=== PATIENT | female | born 1940 | race Caucasian/White ===

== ENCOUNTER 2018-11-10 22:27 | Inpatient (IN) | payer MEDICARE, BC ==
[2018-11-10 23:40] VITALS: BMI 26.6
--- NOTE | 2018-11-10 23:47 | PDOC.FPRHP ---
- History of Present Illness Chief Complaint: hematemesis, melena History of Present Illness: Patient is a 77F with PMHx of OA, RA, hypothyroidism, HTN, HLD that presented as a direct admit from [place] for upper GI bleed. Patient reports that early this morning she had a bout of coffee ground emesis, and 1 episode of melena. She denies that this has ever happened to her before. She states that she has been nauseous for the past few months with some weight loss, but denies other symptoms. She states that she had a colonoscopy >10 years ago, and this was normal. She denies frequent NSAID use, though sulindac is on her home med list - Allergies/Adverse Reactions Allergies Allergy/AdvReac Type Severity Reaction Status Date / Time No Known Allergies Allergy Unverified 11/11/18 04:17 - Home Medications Medication Instructions Recorded Confirmed Type Amlodipine [Norvasc] 5 mg DAILY 11/11/18 11/11/18 History Atorvastatin Calcium 40 mg HS 11/11/18 11/11/18 History Gabapentin 300 mg BID 11/11/18 11/11/18 History Levothyroxine Sodium 125 mcg DAILY 11/11/18 11/11/18 History Quinapril HCl 20 mg DAILY 11/11/18 11/11/18 History Sulindac 200 mg BID 11/11/18 11/11/18 History - History PMHx:OA, RA, hypothyroidism, HTN, HLD PSHx: hysterectomy, knee replacement FHx: sister had colon cancer, unknown age of diagnosis Social:1ppd smoker, no etoh use, no drug use - Review of Systems General: reports: weight/appetite/sleep changes (reported weight loss over the last few months). denies: fever/chills Eyes: denies: eye pain, vision changes ENT: denies: nasal congestion, rhinorrhea Respiratory: denies: cough, congestion, shortness of breath Cardiovascular: denies: chest pain, palpitation Gastrointestinal: reports: vomiting, GI bleeding Genitourinary: denies: incontinence, dysuria Skin: denies: rashes, lesions Musculoskeletal: reports: arthritis/arthralgias. denies: pain Neurological: denies: numbness, weakness Psychological: denies: anxiety, depression - Vital signs BP: [124/74] HR: [90] RR: [18] Tmax: [98.2] Pox: [96]% on [RA] Wt: [72.57kg] - Physical Exam Constitutional: NAD, awake, alert and oriented HEENT: EOMI, MMM Neck: supple, trachea midline Chest: no-tender to palpation, no lesions Heart: RRR, normal S1/S2 Lungs: CTAB, no respiratory distress Abdomen: soft, non-tender, bowel sounds present Musculoskeletal: normal structure, normal tone Neurological: no focal deficit, normal sensation Skin: good turgor, other (pale) Heme/Lymphatic: no unusual bruising or bleeding, no purpura Psychiatric: normal mood and affect, good judgment and insight FMR H&P: A/P - Problem List (1) Upper GI bleed Current Visit: Yes Status: Acute Code(s): K92.2 - GASTROINTESTINAL HEMORRHAGE, UNSPECIFIED (2) Osteoarthritis Current Visit: Yes Status: Acute Code(s): M19.90 - UNSPECIFIED OSTEOARTHRITIS, UNSPECIFIED SITE (3) Rheumatoid arthritis Current Visit: Yes Status: Acute Code(s): M06.9 - RHEUMATOID ARTHRITIS, UNSPECIFIED (4) Hypothyroidism Current Visit: Yes Status: Acute Code(s): E03.9 - HYPOTHYROIDISM, UNSPECIFIED (5) HTN (hypertension) Current Visit: Yes Status: Acute Code(s): I10 - ESSENTIAL (PRIMARY) HYPERTENSION (6) HLD (hyperlipidemia) Current Visit: Yes Status: Acute Code(s): E78.5 - HYPERLIPIDEMIA, UNSPECIFIED - Plan Patient is a 77F with PMHx of OA, RA, hypothyroidism, HTN, HLD that presented as a direct admit from [place] for upper GI bleed. #Upper GI Bleed -patient had reported episode of coffe-ground emesis, melena earlier this morning -patient has been taking sulindac -last colonoscopy >10 years ago, reportedly normal -sister with reported colon cancer -denies abdominal pain at this time -GI consult, likely EGD in am #HTN -well controlled at this time, continue home meds #HLD -continue home meds #Hypothyroidism -continue home meds #OA, RA -not on any DMARDS, questionable RA dx -hold home sulindac Diet: NPO DVT: SCDs Code: Full Dispo: inpatient for upper GI bleed, GI consult in am with likely EGD FMR H&P: Upper Level - Pertinent history 77 yo F here as direct admit from [place] for a suspected upper GI bleed. Patient initially presented to ER due to one episode of coffee ground emesis and black tarry stool. She denies associated palpitation, CP, SOB, or dizziness. She does have a hx of OA, however typically does not take NSAIDs. She does not have a hx of GI bleed. Her most recent colonoscopy was about 10 years ago and normal. In the outside ED Hb was 10.4 with an MCV of 93. There were no other lab abnormalities in the outside ED. PMHx OA RA HTN HLD Social Hx +30 pack year hx of cigarette smoking No recreational drugs or etoh Surgical hx - none - Pertinent findings See agriculture intern note for full ROS, PE, vitals, and labs ROS General Denies fever, chills CV Denies CP or palpitation Resp Denies SOB or cough GI complains of coffee ground emesis and 1 episode of black stool. denies increased frequency or dysuria PE General A&O x4, NAD HEENT NCAT, conj is pink CV RRR, no murmur Resp CTA Abd soft, normal bowel sounds, no masses Extremities normal strength and ROM. No edema. Normal cap refill Neuro CN II-XII grossly intact - Plan Date/Time: 11/10/18 1286 I, Grant Bourgeois DO, have evaluated this patient and agree with findings/plan as outlined by agriculture intern resident. Pertinent changes/additions are listed here. 1. Upper GI bleed, suspected - currently hemodynamically stable. Admit to medicine - consult GI - NPO at midnight for expected scope. - monitor H&H in am 2. Acute blood loss anemia - Monitor as above 3. HTN - home meds 4. HLD - home meds 5. RA - unsure of this dx. PE is not c/w with RA and pt is on no DMARDs See agriculture intern note for management of other chronic conditions. Code Full Diet NPO PPx SCD
[2018-11-11 05:54] LABS: #Basophils 0.1 thou/uL (0.0-0.2); #Eosinphils 0.3 thou/uL (0.0-0.7); #Lymphocytes 1.7 thou/uL (1.20-3.40); #Monocytes 0.5 thou/uL (0.11-0.59); #Neutrophils 4.7 thou/uL (1.40-6.50); %Basophils 0.7 % (0.0-1.0); %Eosinophils 4.4 % (0.0-10.0); %Lymphocytes 23.1 % (21.0-51.0); %Monocytes 6.7 % (0.0-10.0); Hemoglobin 8.9 g/dL (12.0-16.0); Mean Corpuscular HGB CONC 32.9 g/dL (32.0-36.0); Mean Corpuscular Hemoglobin 31.1 pg (27.0-31.0); Mean Corpuscular Volume 94.5 fL (78.0-98.0); Platelet Count 279 thou/uL (130-400); RBC Distribution Width 12.8 % (11.5-14.5); Red Blood Cell (RBC) Count 2.85 mill/uL (4.20-5.40); White Blood Cell (WBC) Count 7.2 thou/uL (4.8-10.8)
[2018-11-11] MEDS: Levothyroxine Sodium 125 MCG TAB PO SCH (05:54)
[2018-11-11 06:14] LABS: ALT (SGPT) 10 U/L (8-55); AST (SGOT) 19 U/L (5-34); Albumin 2.7 g/dL (3.4-4.8); Alkaline Phosphatase 130 U/L (40-110); Anion Gap 10 mmol/L (10-20); BUN (Urea Nitrogen) 28 mg/dL (9.8-20.1); Bilirubin, Total 0.6 mg/dL (0.2-1.2); Calc. Creatinine Clearance 53 mL/min (70-130); Calcium 8.1 mg/dL (7.8-10.44); Carbon Dioxide 24 mmol/L (23-31); Chloride 112 mmol/L (98-107); Estimated GFR-MDRD 54; Globulin 2.4 g/dL (2.4-3.5); Glucose 80 mg/dL (83-110); Potassium 4.8 mmol/L (3.5-5.1); Protein, Total 5.1 g/dL (6.0-8.3); Sodium 141 mmol/L (136-145)
--- NOTE | 2018-11-11 06:34 | PDOC.FM ---
- Subjective Subjective: Had bloody coffee ground emesis X2 days ago, and a melena BM. Denies any further emesis or BM since admission. C/o abdominal pain, right LQ. No vomiting since admission. + nausea. - CP, SOB. - Objective MAR Reviewed: Yes Vital Signs & Weight: Vital Signs (12 hours) Temp Pulse Resp BP Pulse Ox 11/11/18 04:53 97.7 F 92 17 112/66 97 11/11/18 00:00 96 11/10/18 22:40 98.2 F 90 18 124/74 96 Weight Weight 72.57 kg Result Diagrams: 11/11/18 05:23 11/11/18 05:23 Phys Exam - Physical Examination Constitutional: NAD HEENT: PERRLA, moist MMs, sclera anicteric Neck: no nodes, no JVD, supple, full ROM Respiratory: no wheezing, no rales, no rhonchi, clear to auscultation bilateral Cardiovascular: RRR, no significant murmur, no rub Gastrointestinal: soft, no distention, positive bowel sounds RLQ and suprapubic abdominal tenderness to palpation. Musculoskeletal: no edema, pulses present Neurological: non-focal, normal sensation, moves all 4 limbs Psychiatric: normal affect, A&O x 3 Skin: no rash, normal turgor, cap refill <2 seconds Deviation from normal: conjunctival pallor. Skin Pallor. Dx/Plan (1) Upper GI bleed Code(s): K92.2 - GASTROINTESTINAL HEMORRHAGE, UNSPECIFIED Status: Acute (2) HLD (hyperlipidemia) Code(s): E78.5 - HYPERLIPIDEMIA, UNSPECIFIED Status: Acute (3) HTN (hypertension) Code(s): I10 - ESSENTIAL (PRIMARY) HYPERTENSION Status: Acute (4) Hypothyroidism Code(s): E03.9 - HYPOTHYROIDISM, UNSPECIFIED Status: Acute (5) Osteoarthritis Code(s): M19.90 - UNSPECIFIED OSTEOARTHRITIS, UNSPECIFIED SITE Status: Acute (6) Rheumatoid arthritis Code(s): M06.9 - RHEUMATOID ARTHRITIS, UNSPECIFIED Status: Acute (7) Acute blood loss anemia Code(s): D62 - ACUTE POSTHEMORRHAGIC ANEMIA Status: Acute - Plan Plan: Patient is a 77F with PMHx of OA, RA, hypothyroidism, HTN, HLD that presented as a direct admit from [place] for upper GI bleed. 1. Upper GI Bleed -patient had reported episode of coffe-ground emesis, melena 11/10. -patient has been taking sulindac, NSAID. D/C'd. -last colonoscopy >10 years ago, reportedly normal -sister with reported colon cancer -denies abdominal pain at this time -GI consult, Dr. Cannon, EGD this am - Added Protonix 40 mg BID. 2. HTN -well controlled at this time, continue home meds 3. HLD -continue home meds 4. Hypothyroidism -continue home meds 5. OA, RA -not on any DMARDS, questionable RA dx -hold home sulindac 6. Acute bloos loss anemia secondary to upper GI bleed. - hgb 8.9, hct 26.9 - monitor H&H, EGD 11/11 Diet: NPO DVT: SCDs Code: Full Dispo: inpatient for upper GI bleed, GI consulted Addendum - Attending - Attending Attestation Date/Time: 11/11/18 5226 I personally evaluated the patient and discussed the management with Dr. Perry. I agree with the History, Examination, Assessment and Plan documented above with any addition or exceptions noted below. The patient has an upper GI bleed. h/h is stable. She will have egd today. Continue protonix. Stopped nsaid.
[2018-11-11] MEDS: Gabapentin 300 MG CAP PO SCH ×2 (08:10→20:41)
[2018-11-11] MEDS: Pantoprazole 40 MG VIAL IVP SCH ×2 (08:10→20:42)
[2018-11-11 08:28] LABS: INR-International Normal Ratio 1.1; PTT 35.2 SEC (22.9-36.1); Prothrombin Time 14.3 SEC (12.0-14.7)
[2018-11-11] MEDS: Amlodipine 5 MG TAB PO SCH (08:33)
[2018-11-11] MEDS: Lisinopril 20 MG TAB PO SCH (08:33)
--- NOTE | 2018-11-11 10:55 | CON ---
DATE OF CONSULTATION: 11/11/2018 REQUESTING PHYSICIAN: Belkis Shukla MD REASON FOR CONSULTATION: Upper GI bleeding. HISTORY OF PRESENT ILLNESS: Isa Salmeron is a very pleasant 77-year-old woman, who was transferred here overnight from [place] with concern for upper GI bleeding. She has a history of arthritis and takes various arthritis medications including sulindac. She denies any past gastrointestinal history. She says she had a colonoscopy in the past, which was normal, though would have been over 10 years ago. She has never undergone upper endoscopy. She says that in general, her appetite is just not that great. She does not really experience any heartburn or abdominal pain or nausea on an ongoing basis though. However, the night before last, she had somewhat acute vomiting. This had a coffee-ground, very dark appearance, which was somewhat alarming to her. Shortly thereafter, she had a bowel movement, which was jet black in color and was also alarming. This prompted her presentation for evaluation yesterday in [place]. She was found to have anemia with hemoglobin of 10.4. She was transferred here, where hemoglobin was found to be 8.9. She has remained hemodynamically stable. She has not had any further episodes of emesis or any further bowel movements since that melenic stool early yesterday. She still does not have any abdominal pain. She has been started on IV pantoprazole. PAST MEDICAL HISTORY: 1. Osteoarthritis. 2. Hypothyroidism. 3. Hypertension. 4. Hyperlipidemia. ALLERGIES: NO KNOWN DRUG ALLERGIES. OUTPATIENT MEDICATIONS: 1. Amlodipine. 2. Atorvastatin. 3. Gabapentin. 4. Levothyroxine. 5. Quinapril. 6. Sulindac 200 mg b.i.d. PAST SURGICAL HISTORY: Hysterectomy, knee replacement. FAMILY HISTORY: Evidently, her sister had colon cancer documented in the chart, though the patient does not recall this on my interview this morning. SOCIAL HISTORY: Smoker, one pack per day. No alcohol or drug use. REVIEW OF SYSTEMS: Full review of systems including constitutional, head, eyes, ears, nose, throat, GI, , cardiovascular, respiratory, musculoskeletal, and neurologic systems is negative except as noted in the HPI. PHYSICAL EXAMINATION: VITAL SIGNS: Temperature 98.3, pulse 79, blood pressure 108/67, and 95% oxygen saturation on room air. GENERAL: A 77-year-old woman, appearing somewhat frail, but nontoxic, in no acute distress, sitting up in bed comfortably. SKIN: Slightly pale. No jaundice. No rashes were palpable. HEENT: Eyes, no scleral icterus. Extraocular movements intact. ENT, mucous membranes moist. No oral lesions. LYMPH: No submandibular or supraclavicular lymphadenopathy. THYROID: Nontender to palpation. HEART: Regular rate and rhythm. LUNGS: Clear to auscultation bilaterally. ABDOMEN: Bowel sounds present. Soft and nontender to palpation throughout. EXTREMITIES: No peripheral edema. VESSELS: Radial pulses 2+ bilaterally. NEUROLOGIC: Cranial nerves 2 through 12 intact bilaterally. No focal deficits. LABORATORY STUDIES: Hemoglobin 8.9, MCV 94.5, WBC is 7.2, platelets 279. Sodium 141, potassium 4.8, BUN 28, creatinine 1.0, glucose 80, alkaline phosphatase 130, AST 19, ALT 10, total bilirubin 0.6, albumin 2.7. ASSESSMENT AND PLAN: 1. Hematemesis, single episode, characterized as coffee-ground in appearance. 2. Melena, single episode. 3. Acute blood loss anemia. The patient has had significant hemoglobin decline as well as BUN slightly elevated out of proportion to creatinine, paired with coffee-ground emesis and melena, all concerning for recent acute upper gastrointestinal bleeding. She is hemodynamically stable and does not have a lot of other symptoms. We discussed that further investigation is certainly warranted. We will plan for diagnostic EGD later today. Stay n.p.o. in the meantime. Agree with the Protonix IV. Further recommendations following upper endoscopy. It sounds like the patient is due for screening colonoscopy at some point. This can be discussed on an outpatient basis. If the EGD is completely normal, then we would potentially consider colonoscopy tomorrow. Thank you for the consultation. Please call anytime with questions or concerns. Job ID: [id number]
[2018-11-11] MEDS ORDERED: EPINEPHrine 1 MG/10 ML Abboject SYRINGE ONE (11:19)
[2018-11-11] MEDS ORDERED: Lidocaine 1% PF 5 ML VIAL ONE (11:19)
[2018-11-11] MEDS ORDERED: PROPOFOL 200 MG/20 ML VIAL ONE (11:19)
[2018-11-11 12:44] LABS: Iron 80 ug/dL (50-170); Iron Binding Capacity, Total 176 mcg/dL (265-497)
[2018-11-11 13:10] LABS: Ferritin 86.97 ng/mL (10-291)
[2018-11-11] MEDS ORDERED: Midazolam HCl 2 mg/2 ml Vial ONE (14:28)
--- NOTE | 2018-11-11 15:47 | OP ---
DATE OF PROCEDURE: 11/11/2018 AEROBICS INSTRUCTOR SURGEON: None. PROCEDURE PERFORMED: Esophagogastroduodenoscopy with control of hemorrhage. INDICATION: Coffee-grounds emesis and melena as well as acute blood loss anemia. MEDICATIONS: See Anesthesia record. FINDINGS: After discussion of the risks, benefits, and alternatives of the procedure, informed consent was obtained and witnessed. Pre-endoscopic cardiopulmonary examination was satisfactory. Time-out was performed before sedation was achieved. Sedation was achieved with Anesthesia assistance in the endoscopy unit. A Pentax adult upper endoscope was placed into the oropharynx and passed through the cricopharyngeus under direct visualization. The esophageal mucosa appeared normal throughout with a normal-appearing Z-line. The endoscope was advanced into the stomach. Forward and retroflexed views of the entire gastric mucosa were obtained. The gastric mucosa appeared normal throughout. There was no evidence of any old blood or active bleeding or bleeding lesions in the stomach. The endoscope was advanced through the pylorus and into the duodenal bulb. At the apex of the duodenal bulb on the posterior wall, there is an ulceration with a visible vessel. There was associated edema as well as fibrosis, which was circumferential in this area. With some difficulty, I was able to maneuver the upper endoscope beyond this ulcerated strictured area into the second portion of the duodenum, which appeared normal. Attention was then directed back to the visible vessel. There was some ongoing mild oozing from the vessel. I elected to treat this endoscopically. We injected 4 mL of epinephrine submucosally with good blanching effect and hemostasis. I then cauterized the visible vessel in the ulcer base with a 7-[place] bipolar probe with good results. Hemostasis was achieved. At this point, the upper endoscope was completely withdrawn and the patient allowed to recover. The patient tolerated the procedure well. There were no immediate postprocedure complications. IMPRESSION: 1. Duodenal bulb ulcer, posterior wall near the apex, with visible vessel and active oozing. Hemostasis achieved with submucosal epinephrine injection and bipolar cautery with 7-[place] probe. 2. Associated duodenal bulb stricture. 3. Otherwise normal esophagogastroduodenoscopy. RECOMMENDATIONS: 1. Continue with the IV PPI every 12 hours for 2 more days. On hospital discharge, switch to Protonix 40 mg by mouth twice daily, and continue indefinitely, at least until endoscopic followup. 2. Avoid nonsteroidal anti-inflammatory drugs, including sulindac which the patient has been taking. 3. Stop smoking. 4. Advance diet. 5. Monitor hemoglobin and hematocrit. 6. Check H. pylori serology, treat with triple therapy if positive. 7. Repeat EGD in 2 months will be planned. Job ID: [id number]
[2018-11-11] MEDS: Atorvastatin Calcium 40 MG TAB PO SCH (20:41)
[2018-11-11] MEDS ORDERED: FLU VACC TS2019-20(65YR UP)/PF 180 MCG/0.5 ML SYRINGE IM ONE (21:00)
[2018-11-11] MEDS ORDERED: Prevnar 13-Val Conj/PF 0.5 ML SYRINGE IM ONE (21:00)
[2018-11-11 22:21] LABS: Bilirubin Negative (Negative); Blood, Urine Negative (Negative); Clarity Clear (Clear); Glucose, Urine (Dipstick) Normal (Negative); Leukocyte 25 Leu/uL (Negative); Mucous/LPF Rare LPF (<2+); Nitrite Negative (Negative); Protein, Urine (Dipstick) Negative (Neg-Trace); RBC/HPF None Seen HPF (0-3); WBC/HPF 0-3 HPF (0-3)
[2018-11-11 22:32] LABS: Bacteria/HPF 2+ HPF (None Seen); Squamous Epithelial 0-3 HPF (0-3)
[2018-11-11 22:34] LABS: Urine Culture Reflex Yes Yes
[2018-11-12] MEDS: Levothyroxine Sodium 125 MCG TAB PO SCH (05:41)
[2018-11-12 06:15] LABS: #Eosinphils 0.4 thou/uL (0.0-0.7); #Lymphocytes 1.6 thou/uL (1.20-3.40); #Monocytes 0.5 thou/uL (0.11-0.59); #Neutrophils 3.8 thou/uL (1.40-6.50); %Basophils 0.5 % (0.0-1.0); %Eosinophils 5.6 % (0.0-10.0); %Lymphocytes 24.7 % (21.0-51.0); %Neutrophils 61.2 % (42.0-75.0); Hemoglobin 8.6 g/dL (12.0-16.0); Mean Corpuscular HGB CONC 33.3 g/dL (32.0-36.0); Mean Corpuscular Hemoglobin 31.2 pg (27.0-31.0); Mean Corpuscular Volume 93.7 fL (78.0-98.0); Mean Platelet Volume 6.8 fL (7.4-10.4); Platelet Count 251 thou/uL (130-400); RBC Distribution Width 12.6 % (11.5-14.5); Red Blood Cell (RBC) Count 2.75 mill/uL (4.20-5.40); White Blood Cell (WBC) Count 6.3 thou/uL (4.8-10.8)
[2018-11-12 06:39] LABS: ALT (SGPT) 11 U/L (8-55); AST (SGOT) 23 U/L (5-34); Albumin 2.6 g/dL (3.4-4.8); Alkaline Phosphatase 122 U/L (40-110); Anion Gap 9 mmol/L (10-20); BUN (Urea Nitrogen) 25 mg/dL (9.8-20.1); Bilirubin, Total 0.4 mg/dL (0.2-1.2); Calc. Creatinine Clearance 54 mL/min (70-130); Calcium 8.1 mg/dL (7.8-10.44); Carbon Dioxide 24 mmol/L (23-31); Chloride 112 mmol/L (98-107); Estimated GFR-MDRD 55; Glucose 87 mg/dL (83-110); Potassium 4.1 mmol/L (3.5-5.1); Protein, Total 4.6 g/dL (6.0-8.3); Sodium 141 mmol/L (136-145)
[2018-11-12] MEDS: Gabapentin 300 MG CAP PO SCH ×2 (08:04→20:12)
[2018-11-12] MEDS: Pantoprazole 40 MG VIAL IVP SCH ×2 (08:05→20:12)
[2018-11-12] MEDS: Amlodipine 5 MG TAB PO SCH (09:20)
[2018-11-12] MEDS: Lisinopril 20 MG TAB PO SCH (09:20)
--- NOTE | 2018-11-12 12:05 | PDOC.FM ---
- Subjective Subjective: Mrs. Salmeron was sleeping soundly at the start of the evaluation, but was easy to around and pleasant to converse with. She denied no overnight events, significantly with regard to continued abdominal pain. She stated that she was not having any difficulties with her recent tobacco cessation. - Objective Vital Signs & Weight: Vital Signs (12 hours) Temp Pulse Resp BP Pulse Ox 11/12/18 11:10 98.5 F 74 16 98/65 96 11/12/18 08:00 93 L 11/12/18 07:13 97.9 F 106 H 18 114/72 93 L 11/12/18 04:54 98.2 F 71 18 94 L Weight Weight 72.57 kg I&O: 11/11/18 11/12/18 11/13/18 06:59 06:59 06:59 Intake Total 350 Balance 350 Result Diagrams: 11/12/18 06:05 11/12/18 06:05 Phys Exam - Physical Examination Constitutional: NAD HEENT: PERRLA, moist MMs, sclera anicteric, oral pharynx no lesions Neck: supple, full ROM Respiratory: no rales, no rhonchi, clear to auscultation bilateral Cardiovascular: RRR, no significant murmur, no rub Gastrointestinal: soft, non-tender Musculoskeletal: no edema, pulses present Neurological: non-focal, moves all 4 limbs Psychiatric: normal affect Skin: no rash Dx/Plan - Plan Plan: 1. Upper GI Bleed -Patient had reported episode of coffee-ground emesis and melena on 11/10 -Patient admits to extensive use of NSAIDs for chronic OA / RA -Last Colonoscopy > 10 years prior, reportedly normal -Continue to deny ABD pain -s/p EGD - Ulcer visualized in Duodenal Bulb that required Epinephrine and electrocautery - 2. HTN -BP: 107/67 on 11/12 -Continue home meds 3. HLD -Continue home meds 4. Hypothyroidism -Continue home meds 5. OA, RA -Not currently taking DMARD, questionable RA diagnosis -Continue to hold NSAIDs 6. Acute Blood Loss Anemia, 2/2 to Upper GI Bleed -H.6 on / Hct: 26.9 - 11/12/18 -Continue to monitor H&H -Transfuse if needed Diet: Clear liquids DVT: SCDs Code: Full Dispo: Admitted to Medical Floor for upper GI bleed, s/p EGD. Continue clear liquid diet andIV Protonix, per GI. LOS < 48H Addendum - Attending - Attending Attestation Date/Time: 11/12/18 1505 I personally evaluated the patient and discussed the management with Dr. De Luna. I agree with the History, Examination, Assessment and Plan documented above with any addition or exceptions noted below. The patient is tired this morning. Will continue protonix. Bleeding ulcer noted on egd yesterday. Will advance diet. monitor h/h.
--- NOTE | 2018-11-12 12:17 | PRG ---
DATE OF SERVICE: 11/12/2018 SUBJECTIVE: Ms. Salmeron is doing well. She ate a pretty good breakfast this morning. No nausea or abdominal pain. No further melena. Hemoglobin is basically stable at 8.6. OBJECTIVE: VITAL SIGNS: Temperature 98.5, pulse 74, blood pressure 98/65, 96% oxygen saturation on room air. GENERAL: No acute distress. HEART: Regular rate and rhythm. LUNGS: Clear to auscultation bilaterally. ABDOMEN: Soft, nontender. EXTREMITIES: No peripheral edema. LABORATORY STUDIES: Hemoglobin 8.6, WBC 6.3, platelets 251. INR 1.1. Sodium 141, potassium 4.1, BUN 25, creatinine 0.97. ASSESSMENT AND PLAN: 1. Duodenal ulcer with hemorrhage, now status post successful hemostasis with submucosal epinephrine injection and bipolar cautery on EGD performed yesterday. 2. Associated duodenal bulb stricture. 3. Acute blood loss anemia, now stabilized. Ms. Salmeron is doing well. No further evidence of active GI bleeding. I would recommend continuing the IV PPI for one more day, observing one more night to assure no recurrence of bleeding. If she is doing well tomorrow morning, anticipate she could be discharged from the hospital on oral Protonix 40 mg twice daily, to continue indefinitely, at least until endoscopic followup. Avoid nonsteroidal anti-inflammatory drugs including sulindac, which she had been taking. She needs to stop smoking. We will follow up on H pylori serology results as an outpatient. We will plan to see her back in my clinic in about 1 month or sooner if needed. Please call back anytime if needed. Job ID: [id number]
[2018-11-12] MEDS: Atorvastatin Calcium 40 MG TAB PO SCH (20:11)
[2018-11-13] MEDS: Levothyroxine Sodium 125 MCG TAB PO SCH (05:03)
[2018-11-13 05:28] LABS: #Eosinphils 0.4 thou/uL (0.0-0.7); #Lymphocytes 1.4 thou/uL (1.20-3.40); #Monocytes 0.4 thou/uL (0.11-0.59); #Neutrophils 3.4 thou/uL (1.40-6.50); %Basophils 0.5 % (0.0-1.0); %Eosinophils 6.9 % (0.0-10.0); %Lymphocytes 25.2 % (21.0-51.0); %Monocytes 6.7 % (0.0-10.0); %Neutrophils 60.7 % (42.0-75.0); Hemoglobin 8.2 g/dL (12.0-16.0); Mean Corpuscular Hemoglobin 30.8 pg (27.0-31.0); Mean Corpuscular Volume 93.3 fL (78.0-98.0); Mean Platelet Volume 6.9 fL (7.4-10.4); Platelet Count 236 thou/uL (130-400); RBC Distribution Width 12.5 % (11.5-14.5); Red Blood Cell (RBC) Count 2.66 mill/uL (4.20-5.40); White Blood Cell (WBC) Count 5.5 thou/uL (4.8-10.8)
[2018-11-13 05:55] LABS: ALT (SGPT) 10 U/L (8-55); AST (SGOT) 19 U/L (5-34); Albumin 2.5 g/dL (3.4-4.8); Alkaline Phosphatase 123 U/L (40-110); Anion Gap 7 mmol/L (10-20); BUN (Urea Nitrogen) 17 mg/dL (9.8-20.1); Bilirubin, Total 0.4 mg/dL (0.2-1.2); Calc. Creatinine Clearance 50 mL/min (70-130); Calcium 7.9 mg/dL (7.8-10.44); Carbon Dioxide 27 mmol/L (23-31); Chloride 110 mmol/L (98-107); Estimated GFR-MDRD 51; Glucose 95 mg/dL (83-110); Potassium 4.2 mmol/L (3.5-5.1); Protein, Total 4.5 g/dL (6.0-8.3); Sodium 140 mmol/L (136-145)
[2018-11-13] MEDS: Gabapentin 300 MG CAP PO SCH (08:56)
[2018-11-13] MEDS: Pantoprazole 40 MG VIAL IVP SCH (08:56)
[2018-11-13] MEDS: Amlodipine 5 MG TAB PO SCH (08:56)
[2018-11-13] MEDS: Lisinopril 20 MG TAB PO SCH (08:57)
--- NOTE | 2018-11-13 09:37 | PDOC.FM ---
- Subjective Subjective: Mrs. Salmeron was sleeping at the time of evaluation but was easily arousable and pleasant. She denied any overnight events such as chest pain, SOB, ABD pain or N /V/D. - Objective Vital Signs & Weight: Vital Signs (12 hours) Pulse BP 11/13/18 08:57 110/71 11/13/18 08:56 85 110/71 Weight Weight 72.57 kg I&O: 11/12/18 11/13/18 11/14/18 06:59 06:59 06:59 Intake Total 350 Balance 350 Result Diagrams: 11/13/18 05:08 11/13/18 05:08 Phys Exam - Physical Examination Constitutional: NAD HEENT: PERRLA, moist MMs, sclera anicteric, oral pharynx no lesions Neck: supple, full ROM Respiratory: no wheezing, no rales, no rhonchi, clear to auscultation bilateral Cardiovascular: RRR, no significant murmur, no rub Gastrointestinal: soft, non-tender, no distention Musculoskeletal: no edema, pulses present Neurological: non-focal Psychiatric: normal affect Skin: no rash Dx/Plan - Plan Plan: 1. Upper GI Bleed -Patient had reported episode of coffee-ground emesis and melena on 11/10 -Patient admits to extensive use of NSAIDs for chronic OA / RA -Last Colonoscopy > 10 years prior, reportedly normal -Continue to deny ABD pain -s/p EGD - Ulcer visualized in Duodenal Bulb that required Epinephrine and electrocautery -Transitioned to Protonix 40 mg PO BID 2. HTN -BP: 115/76 on 11/13 -Continue home meds 3. HLD -Continue home meds 4. Hypothyroidism -Continue home meds 5. OA, RA -Not currently taking DMARD, questionable RA diagnosis -Continue to hold NSAIDs 6. Acute Blood Loss Anemia, 2/2 to Upper GI Bleed -H.2 on / Hct: 24.9 - 11/13/18 -Continue to monitor H&H -Transfuse if needed Diet: Clear liquids DVT: SCDs Code: Full Dispo: Admitted to Medical Floor for upper GI bleed, s/p EGD. Continue clear liquid diet and transition to PO medications. Consider DC today following GI recs. LOS < 12H Addendum - Attending - Attending Attestation Date/Time: 11/13/18 0711 I personally evaluated the patient and discussed the management with Dr. De Luna. I agree with the History, Examination, Assessment and Plan documented above with any addition or exceptions noted below. The patient is doing well. H/h stable. No new signs of bleeding. Tolerating diet. Will f/u with GI recs.
--- NOTE | 2018-11-13 11:14 | PRG ---
DATE OF SERVICE: 11/13/2018 SUBJECTIVE: Ms. Salmeron is feeling well. No nausea or vomiting. She is tolerating her diet. No melena. Hemodynamically stable. OBJECTIVE: VITAL SIGNS: Temperature 98.1, pulse 85, blood pressure 110/71, 96% oxygen saturation on room air. GENERAL: No acute distress. HEART: Regular rate and rhythm. LUNGS: Clear to auscultation bilaterally. ABDOMEN: Soft and nontender to palpation. EXTREMITIES: No peripheral edema. LABORATORY STUDIES: Hemoglobin 8.2, WBC 5.5, and platelets are 236. Sodium 140, potassium 4.2, BUN down to 17, creatinine 1.05, alkaline phosphatase 123, AST 19, ALT 10, total bilirubin 0.4, albumin 2.5, and H pylori serology is pending. ASSESSMENT/PLAN: 1. Duodenal ulcer with hemorrhage, now status post successful hemostasis with endoscopic treatment two days ago. 2. Associated duodenal bulb stricture. 3. Acute blood loss anemia. Ms. Salmeron continues to do well. No further evidence of active GI bleeding. She can be transitioned to pantoprazole 40 mg p.o. b.i.d. to continue indefinitely at least until endoscopic followup. Avoid nonsteroidal anti-inflammatory drugs including sulindac. She also needs to stop smoking. We will follow up on the H pylori serology results as an outpatient. We will plan to see her back in my clinic in about 1 month or sooner if needed. 4. GI will sign off. No barriers to discharge from a GI perspective. Please call back in anytime with questions or concerns. Job ID: [id number]
[2018-11-13 21:29] VITALS: BP 129/71; TEMP 98.6
--- NOTE | 2018-11-14 14:19 | DIS ---
DATE OF ADMISSION: 11/10/2018 DATE OF DISCHARGE: 11/13/2018 RESIDENT: Emmett De Luna MD CONSULTS: JAE Raygoza. PROCEDURES: EGD performed by JAE Raygoza that revealed an ulcer in the duodenal bulb that required epinephrine injection and electrocautery in order to acquire hemostasis. PRIMARY DIAGNOSES: 1. Upper gastrointestinal bleed. 2. Osteoarthritis. 3. Rheumatoid arthritis. 4. Hypothyroidism. 5. Hypertension. 6. Hyperlipidemia. 7. Acute alcoholic gastritis with hemorrhage. 8. Acute blood loss anemia. DISCHARGE MEDICATIONS: Protonix 40 mg. DISCONTINUED MEDICATIONS: 1. Amlodipine 5 mg. 2. Atorvastatin 40 mg. 3. Gabapentin 300 mg. 4. Levothyroxine sodium 125 mcg. 5. Lisinopril 20 mg. 6. Pantoprazole 40 mg. 7. Sodium chloride 10 mL IV fluid flush p.r.n. HISTORY OF PRESENT ILLNESS/HOSPITAL COURSE: Ms. Salmeron is a 76-year-old female with past medical history of osteoarthritis, RA, hypothyroidism, hypertension, hyperlipidemia, who presents as a direct admit from [place], [place] for an upper GI bleed. The patient reports that early this morning, she had a bout of coffee-ground emesis and one episode of melena. She denies that this has ever happened to her before. She states she has been nauseous for the past few months with some weight loss. Denies other symptoms. She stated that she had a colonoscopy greater than 10 years ago, but that was read as normal. She denies frequent NSAID use, although is on her home med list. Further evaluation revealed that she actually took this daily. Past surgical history significant for hysterectomy and knee replacement. Family history significant for a sister who had colon cancer. She is a one pack per day smoker and denies alcohol and drug abuse. During her hospital stay, an EGD was performed by JAE Raygoza as noted previously with positive outcomes. Hemostasis was achieved and the patient's overall condition improved greatly. She was kept on a clear liquid diet and had Protonix 40 mg p.o. b.i.d. as part of her discharge medications. She had a pleasant hospital stay and her laboratory values remained relatively stable throughout the duration. Upon discharge, her laboratory values were as follows; white blood cell count 5.5, hemoglobin 8.2, hematocrit 24.9, platelets 236. Sodium 140, potassium 4.2, chloride 110, CO2 27, BUN 17, creatinine 1.1. POC glucose 95. H pylori results are still pending. PT 14.3, INR 1.1. APTT 35.2, serum iron 80, total iron-binding capacity 176, ferritin 86.97, alkaline phosphatase 123, vitamin B12 199. A urine culture was performed that revealed trace ketones, 2 urine urobilinogen, urine bacteria, but was otherwise negative as reflex culture resulted in less than 10,000 colony-forming units. DISCHARGE INSTRUCTIONS: 1. Location: Home. 2. Diet: The patient was advised to maintain a heart healthy diet. Job ID: [id number]
[2018-11-15 15:11] LABS: Folate,Hemolysate 195.3 ng/mL (Not Estab.); Hematocrit 29.3 % (34.0-46.6); RBC Folate Test Component 667 ng/mL (>498)
[2018-11-15 18:08] LABS: H. pylori IgA ABS Less than 9.0 units (0.0-8.9); H. pylori IgG ABS 0.36 (0.00-0.79); H. pylori IgM ABS Less than 9.0 units (0.0-8.9)
== END 2018-11-13 19:40 | disposition home or self-care (01) | DRG 378 ==
LOC: T4-B 22:27 → EDBD 22:27
PROVIDERS: ADMIT Emergency Medicine; ATTEND Emergency Medicine
PROC: 0W3P8ZZ Control Bleeding in Gastrointestinal Tract, Via Natural or Artificial Opening Endoscopic (ICD-10-PCS; principal; 2018-11-11)
DX: K26.4 Chronic or unspecified duodenal ulcer with hemorrhage (principal); D62 Acute posthemorrhagic anemia; K31.5 Obstruction of duodenum; I10 Essential (primary) hypertension; E78.5 Hyperlipidemia, unspecified; M06.9 Rheumatoid arthritis, unspecified; E03.9 Hypothyroidism, unspecified; Z96.659 Presence of unspecified artificial knee joint; Z90.710 Acquired absence of both cervix and uterus; F17.200 Nicotine dependence, unspecified, uncomplicated; M19.90 Unspecified osteoarthritis, unspecified site
CPT/HCPCS: 36415; 80053; 81001; 82607; 82728; 82747; 83540; 83550; 85025; 85610; 85730; 87086; 90471; 90662; 90670; C9113; G0008; G0009; J0171; J2001; J2250; J2704

== ENCOUNTER 2020-07-10 20:25 | Inpatient (IN) | payer MEDICARE, BC ==
[2020-07-10] MEDS ORDERED: Dextrose 50% Abboject 50 ML SYRINGE SLOW IVP PRN (21:03)
[2020-07-10] MEDS ORDERED: Dextrose 5% in Water 1,000 ML IV PRN (21:03)
[2020-07-10] MEDS ORDERED: hydrALAZINE 20 MG/ML VIAL SLOW IVP PRN (21:03)
[2020-07-10] MEDS ORDERED: Ondansetron PF 4 MG/2 ML Vial IVP PRN (21:03)
[2020-07-10] MEDS ORDERED: Cyclobenzaprine 10 MG TAB PO PRN (21:10)
[2020-07-10 21:42] LABS: #Eosinphils 0.1 thou/uL (0.0-0.7); #Lymphocytes 1.2 thou/uL (1.20-3.40); #Monocytes 0.6 thou/uL (0.11-0.59); #Neutrophils 9.2 thou/uL (1.40-6.50); %Basophils 0.2 % (0.0-1.0); %Eosinophils 0.9 % (0.0-10.0); %Lymphocytes 10.5 % (21.0-51.0); %Monocytes 5.1 % (0.0-10.0); %Neutrophils 83.4 % (42.0-75.0); Hemoglobin 11.8 g/dL (12.0-16.0); Mean Corpuscular HGB CONC 33.6 g/dL (32.0-36.0); Mean Corpuscular Hemoglobin 28.8 pg (27.0-31.0); Mean Corpuscular Volume 85.9 fL (78.0-98.0); Mean Platelet Volume 6.4 fL (7.4-10.4); Platelet Count 279 thou/uL (130-400); RBC Distribution Width 13.1 % (11.5-14.5)
[2020-07-10 22:00] LABS: PTT 34.8 sec (22.9-36.1); Prothrombin Time 13.2 sec (12.0-14.7)
[2020-07-10 22:13] LABS: Anion Gap 11 mmol/L (10-20); BUN (Urea Nitrogen) 11 mg/dL (9.8-20.1); Calc. Creatinine Clearance 0 mL/min (70-130); Calcium 8.7 mg/dL (7.8-10.44); Carbon Dioxide 26 mmol/L (23-31); Chloride 106 mmol/L (98-107); Glucose 105 mg/dL (83-110); Phosphorus 3.1 mg/dL (2.3-4.7); Potassium 3.8 mmol/L (3.5-5.1); Sodium 139 mmol/L (136-145)
[2020-07-10] MEDS: Acetaminophen 325 MG TAB PO SCH (22:21)
[2020-07-10] MEDS: Ibuprofen 200 MG TAB PO SCH (22:21)
[2020-07-10 22:35] VITALS: BMI 23.2
[2020-07-10] MEDS: traMADol HCl 50 MG TAB PO SCH (23:49)
[2020-07-11] MEDS ORDERED: Lactated Ringer's 1,000 ML IV SCH (00:15)
[2020-07-11 00:49] LABS: SARS-CoV-2 NAA Rapid Test Not Detected (NotDetected)
[2020-07-11] MEDS: Acetaminophen 325 MG TAB PO SCH ×4 (04:14→20:07)
[2020-07-11] MEDS: Levothyroxine Sodium 125 MCG TAB PO SCH (05:58)
[2020-07-11] MEDS: Ibuprofen 200 MG TAB PO SCH ×2 (05:58→14:00)
[2020-07-11] MEDS: traMADol HCl 50 MG TAB PO SCH ×4 (05:59→23:25)
[2020-07-11] MEDS: Polyethylene Glycol 3350 17 GM Packet PO SCH (09:09)
[2020-07-11] MEDS: Senokot S 8.6-50 MG TAB PO SCH ×2 (09:09→20:01)
[2020-07-11] MEDS: Famotidine/PF 20 mg/2ml Vial SLOW IVP SCH ×2 (09:09→20:01)
[2020-07-11] MEDS: Gabapentin 100 MG CAP PO SCH ×3 (09:09→19:59)
[2020-07-11] MEDS ORDERED: CEFAZOLIN 2 GM in Premix Bag 1 BAG IVPB SCH (10:45)
[2020-07-11] MEDS ORDERED: Fentanyl 100 MCG/2 ML VIAL ONE ×2 (15:22→17:35)
[2020-07-11] MEDS ORDERED: Lidocaine 1% PF 5 ML VIAL ONE (15:55)
[2020-07-11] MEDS ORDERED: PROPOFOL 200 MG/20 ML VIAL ONE (15:55)
[2020-07-11] MEDS ORDERED: Ondansetron PF 4 MG/2 ML Vial ONE (15:55)
[2020-07-11] MEDS ORDERED: Dexamethasone 20 MG/5 ML VIAL ONE (15:55)
[2020-07-11] MEDS ORDERED: Promethazine HCl 25 MG/ML VIAL SLOW IVP PRN (17:22)
[2020-07-11] MEDS ORDERED: HYDROmorphone 2 MG/ML VIAL SLOW IVP PRN (17:22)
[2020-07-11] MEDS ORDERED: Meperidine HCl/PF 25 MG/ML VIAL SLOW IVP PRN (17:22)
[2020-07-11] MEDS ORDERED: Morphine Sulfate 2 MG/ML SYRINGE SLOW IVP PRN (17:22)
[2020-07-11] MEDS ORDERED: Ondansetron HCl/PF 4 MG/2 ML Vial IVP PRN (17:22)
[2020-07-11] MEDS ORDERED: PACU-Morphine 4MG/ML VIAL SLOW IVP PRN (17:22)
[2020-07-11] MEDS ORDERED: Promethazine HCl 25 MG/ML VIAL IM PRN (17:22)
[2020-07-11] MEDS: traMADol HCl 50 MG TAB PO PRN (19:19)
[2020-07-11] MEDS: DULoxetine 30 MG CAP PO SCH (20:01)
[2020-07-11] MEDS: CEFAZOLIN 2 GM in Premix Bag 1 BAG IVPB SCH (23:24)
[2020-07-12] MEDS: Ibuprofen 200 MG TAB PO SCH ×4 (00:38→23:13)
[2020-07-12] MEDS: traMADol HCl 50 MG TAB PO PRN (03:59)
[2020-07-12] MEDS: Acetaminophen 325 MG TAB PO SCH ×4 (04:01→21:12)
[2020-07-12] MEDS ORDERED: Lorazepam 2 MG/ML VIAL ONE (04:56)
[2020-07-12] MEDS: Levothyroxine Sodium 125 MCG TAB PO SCH ×2 (05:05→10:57)
[2020-07-12 05:23] LABS: #Basophils 0.1 thou/uL (0.0-0.2); #Eosinphils 0.1 thou/uL (0.0-0.7); #Lymphocytes 0.9 thou/uL (1.20-3.40); #Monocytes 0.6 thou/uL (0.11-0.59); #Neutrophils 6.9 thou/uL (1.40-6.50); %Basophils 0.8 % (0.0-1.0); %Eosinophils 0.7 % (0.0-10.0); %Lymphocytes 10.8 % (21.0-51.0); %Monocytes 7.1 % (0.0-10.0); %Neutrophils 80.6 % (42.0-75.0); Hemoglobin 9.2 g/dL (12.0-16.0); Mean Corpuscular Hemoglobin 28.5 pg (27.0-31.0); Mean Corpuscular Volume 86.5 fL (78.0-98.0); Mean Platelet Volume 6.9 fL (7.4-10.4); Platelet Count 249 thou/uL (130-400); RBC Distribution Width 13.2 % (11.5-14.5); Red Blood Cell (RBC) Count 3.21 mill/uL (4.20-5.40); White Blood Cell (WBC) Count 8.5 thou/uL (4.8-10.8)
[2020-07-12 05:44] LABS: Anion Gap 9 mmol/L (10-20); BUN (Urea Nitrogen) 12 mg/dL (9.8-20.1); Calc. Creatinine Clearance 49 mL/min (70-130); Calcium 7.7 mg/dL (7.8-10.44); Carbon Dioxide 25 mmol/L (23-31); Chloride 102 mmol/L (98-107); Glucose 139 mg/dL (83-110); Potassium 3.5 mmol/L (3.5-5.1); Sodium 132 mmol/L (136-145)
[2020-07-12] MEDS ORDERED: Lorazepam 2 MG/ML VIAL SLOW IVP SCH (06:00)
[2020-07-12 06:56] LABS: Bacteria/HPF None Seen HPF (None Seen); Bilirubin Negative (Negative); Blood, Urine Trace (Negative); Clarity Clear (Clear); Glucose, Urine (Dipstick) Normal (Negative); Ketone, Urine 20 mg/dL (Negative); Leukocyte 75 Leu/uL (Negative); Nitrite Negative (Negative); Protein, Urine (Dipstick) 50 mg/dL (Neg-Trace); Specific Gravity, Urine 1.025 (1.002-1.036); Squamous Epithelial 0-3 HPF (0-3); Urobilinogen Normal mg/dL (Less than 2)
[2020-07-12 07:00] LABS: Urine Culture Reflex Yes Yes
[2020-07-12] MEDS: traMADol HCl 50 MG TAB PO SCH ×4 (07:27→23:13)
[2020-07-12] MEDS: CEFAZOLIN 2 GM in Premix Bag 1 BAG IVPB SCH ×2 (10:19→16:19)
[2020-07-12] MEDS: Gabapentin 100 MG CAP PO SCH ×3 (10:56→21:20)
[2020-07-12] MEDS: Senokot S 8.6-50 MG TAB PO SCH ×2 (10:57→21:12)
[2020-07-12] MEDS: Polyethylene Glycol 3350 17 GM Packet PO SCH (10:57)
[2020-07-12] MEDS: Enoxaparin Sodium 40 MG/0.4 ML SYRINGE SC SCH (11:02)
[2020-07-12] MEDS: Lisinopril 20 MG TAB PO SCH (11:05)
[2020-07-12] MEDS: Amlodipine 5 MG TAB PO SCH (11:05)
[2020-07-12] MEDS: Nitrofurantoin Monohyd/M-Cryst 100 MG CAP PO SCH ×2 (11:06→21:12)
[2020-07-12] MEDS: Famotidine/PF 20 mg/2ml Vial SLOW IVP SCH (11:11)
[2020-07-12] MEDS: Aspirin 81 mg Enteric Coated Tablet PO SCH (21:12)
[2020-07-12] MEDS: DULoxetine 30 MG CAP PO SCH (21:20)
[2020-07-13] MEDS: traMADol HCl 50 MG TAB PO PRN (01:38)
[2020-07-13] MEDS: Acetaminophen 325 MG TAB PO SCH ×2 (03:25→08:22)
[2020-07-13] MEDS: Ibuprofen 200 MG TAB PO SCH (05:10)
[2020-07-13] MEDS: Levothyroxine Sodium 125 MCG TAB PO SCH (05:10)
[2020-07-13] MEDS: traMADol HCl 50 MG TAB PO SCH (05:11)
[2020-07-13 05:33] LABS: #Basophils 0.1 thou/uL (0.0-0.2); #Eosinphils 0.3 thou/uL (0.0-0.7); #Lymphocytes 1.4 thou/uL (1.20-3.40); #Monocytes 0.9 thou/uL (0.11-0.59); #Neutrophils 5.8 thou/uL (1.40-6.50); %Basophils 0.7 % (0.0-1.0); %Eosinophils 3.5 % (0.0-10.0); %Lymphocytes 16.6 % (21.0-51.0); %Monocytes 10.7 % (0.0-10.0); %Neutrophils 68.4 % (42.0-75.0); Mean Corpuscular HGB CONC 33.1 g/dL (32.0-36.0); Mean Corpuscular Hemoglobin 29.2 pg (27.0-31.0); Mean Corpuscular Volume 88.2 fL (78.0-98.0); Platelet Count 215 thou/uL (130-400); RBC Distribution Width 13.2 % (11.5-14.5); Red Blood Cell (RBC) Count 2.74 mill/uL (4.20-5.40); White Blood Cell (WBC) Count 8.5 thou/uL (4.8-10.8)
[2020-07-13 05:51] LABS: Anion Gap 8 mmol/L (10-20); BUN (Urea Nitrogen) 17 mg/dL (9.8-20.1); Calc. Creatinine Clearance 42 mL/min (70-130); Calcium 7.9 mg/dL (7.8-10.44); Carbon Dioxide 26 mmol/L (23-31); Chloride 103 mmol/L (98-107); Glucose 106 mg/dL (83-110); Magnesium 2.1 mg/dL (1.6-2.6); Phosphorus 2.9 mg/dL (2.3-4.7); Potassium 3.5 mmol/L (3.5-5.1); Sodium 133 mmol/L (136-145)
[2020-07-13 07:41] VITALS: BP 99/64; TEMP 98.1
[2020-07-13] MEDS: Amlodipine 5 MG TAB PO SCH (08:18)
[2020-07-13] MEDS: Lisinopril 20 MG TAB PO SCH (08:18)
[2020-07-13] MEDS: Gabapentin 100 MG CAP PO SCH (08:18)
[2020-07-13] MEDS: Aspirin 81 mg Enteric Coated Tablet PO SCH (08:21)
[2020-07-13] MEDS: Senokot S 8.6-50 MG TAB PO SCH (08:21)
[2020-07-13] MEDS: Polyethylene Glycol 3350 17 GM Packet PO SCH (08:21)
[2020-07-13] MEDS: Nitrofurantoin Monohyd/M-Cryst 100 MG CAP PO SCH (08:21)
[2020-07-13] MEDS: Enoxaparin Sodium 40 MG/0.4 ML SYRINGE SC SCH (08:21)
== END 2020-07-13 10:20 | disposition swing bed (61) | DRG 522 ==
LOC: ERS 20:25 → SURG A 21:07
PROVIDERS: ADMIT Specialist; ATTEND Specialist
PROC: 0SRR0JZ Replacement of Right Hip Joint, Femoral Surface with Synthetic Substitute, Open Approach (ICD-10-PCS; principal; 2020-07-11)
DX: S72.001A Fracture of unspecified part of neck of right femur, initial encounter for closed fracture (principal); N39.0 Urinary tract infection, site not specified; D62 Acute posthemorrhagic anemia; Z20.822 Contact with and (suspected) exposure to COVID-19; M19.90 Unspecified osteoarthritis, unspecified site; I10 Essential (primary) hypertension; W18.30XA Fall on same level, unspecified, initial encounter; E78.5 Hyperlipidemia, unspecified; F03.90 Unspecified dementia, unspecified severity, without behavioral disturbance, psychotic disturbance, mood disturbance, and anxiety; F17.210 Nicotine dependence, cigarettes, uncomplicated; Z90.710 Acquired absence of both cervix and uterus; Z79.899 Other long term (current) drug therapy; Z79.890 Hormone replacement therapy
CPT/HCPCS: 36415; 72170; 80048; 81001; 83735; 83880; 84100; 85025; 85610; 85730; 86850; 86900; 86901; 87086; 93005; 93010; 94640; C1776; G0390; J0690; J1100; J1650; J2060; J2405; J2704; J3010; J7620; S0028; U0002; U0005